=== PATIENT | female | born 1930 | race Caucasian/White ===

== ENCOUNTER → 2016-11-01 | Outpatient (CLI) | payer MEDICARE ==
[~2016-11-01] MED LIST: ADV250INH INH; ADVA230A INH; ADVA230INH INH; ALPH0.156 OU; ALTA1CAP PO; BIMA01SOL OU; BRIM2OPD OU; CALC200S; CIPR250T2 PO; DIOV320T PO; DOXY10CA PO; GUAI100S7 PO; LASI20TA PO; LATA0.00 OU; LEVA250T PO; LEVO25TA5 PO; METO12TA FT; METO25TAB PO; METO50TA2 PO; PEG1POW PO; PERCOCET PO; PLAV75TA PO; PRED10PA PO; PRED25TA PO; PREDPOW10 PO; SANT250O TOP; SIMV20TA2 PO; SIMVPOW2 PO; SPIR1CAP INH; SPIR25TA2 PO; SPIRIVA INH; SYNT100T PO; SYNTHROID PO; TYLE325T5 PO; ULTR50TA PO; WARF05TA PO
[2016-11-01 14:30] LABS: FREE T4 1.68 NG/DL (0.76-1.46)
== END | disposition home or self-care (01) ==
LOC: M SMT 10:34
PROVIDERS: ATTEND Family Medicine
DX: E03.8 Other specified hypothyroidism (principal)

== ENCOUNTER → 2017-01-13 | Outpatient (CLI) | payer MEDICARE ==
[~2017-01-13] MED LIST changes: -PLAV75TA PO; +PLAV75TA38 PO; -SANT250O TOP; +SANT250O8 TOP
[2017-01-13 18:17] LABS: FREE T4 1.49 NG/DL (0.76-1.46)
== END ==
LOC: M SMT 09:37
PROVIDERS: ATTEND Family Medicine
DX: E03.8 Other specified hypothyroidism (principal)